=== PATIENT | female | born 1970 | race Caucasian/White ===

== ENCOUNTER 2021-08-27 20:59 | Emergency (ER) | payer OTHER ==
[2021-08-27] MEDS ORDERED: Cyclobenzaprine 10 MG TAB ONE (21:53)
[2021-08-27] MEDS ORDERED: Ketorolac Tromethamine 30 MG/ML VIAL ONE (21:53)
[2021-08-27] MEDS ORDERED: HYDROcodone/Acetaminophen 5/325 mg Tablet ONE (23:35)
== END 2021-08-27 23:50 | disposition home or self-care (01) ==
LOC: CSHERS 20:59
DX: S09.90XA Unspecified injury of head, initial encounter (principal); M25.532 Pain in left wrist; M54.9 Dorsalgia, unspecified; V89.2XXA Person injured in unspecified motor-vehicle accident, traffic, initial encounter
CPT/HCPCS: 70450; 96372; J1885